=== PATIENT | female | born 1950 | race Caucasian/White ===

== ENCOUNTER 2024-11-22 06:27 | Day surgery (SDC) | payer MEDICARE, OTHER ==
[2024-11-22] VITALS (13 sets, daily range): BP systolic 106–169; BP diastolic 52–74; PULSE 54–64; RESP 16–18; TEMP 97–97.6
[~2024-11-22] VITALS: Ht 170.2 cm; Wt 74.8 kg
[~2024-11-22 06:27] MED LIST: ASPI-1012 PO; ESOM40CA PO; LEVO25TA54 PO; METO-391 PO; OLME20TA73 PO; PRED5TAB44 PO; ROSU20TA23 PO
[2024-11-22] MEDS: 0.9%NACL 1000ML 1,000 ML IV ONE (08:06)
== END 2024-11-22 10:50 | disposition home or self-care (01) ==
LOC: DAH 06:27 → ENDO 06:27
PROVIDERS: ATTEND Internal Medicine Gastroenterology
DX: Z12.11 Encounter for screening for malignant neoplasm of colon (principal); K31.7 Polyp of stomach and duodenum; K44.9 Diaphragmatic hernia without obstruction or gangrene; K29.70 Gastritis, unspecified, without bleeding; R12 Heartburn; K57.30 Diverticulosis of large intestine without perforation or abscess without bleeding; K21.9 Gastro-esophageal reflux disease without esophagitis; I48.91 Unspecified atrial fibrillation; E03.9 Hypothyroidism, unspecified; E78.5 Hyperlipidemia, unspecified; I10 Essential (primary) hypertension; E78.49 Other hyperlipidemia; Z86.0100 Personal history of colon polyps, unspecified; Z90.710 Acquired absence of both cervix and uterus; Z90.89 Acquired absence of other organs; Z79.899 Other long term (current) drug therapy
CPT/HCPCS: 43251; 43239; G0105; J7030; J2704; A4620; A4215; J3490